=== PATIENT | female | born 1945 | race Hispanic/Latino ===

== ENCOUNTER 2021-02-17 05:54 | Observation (INO) | payer MEDICARE ==
[2021-02-12 10:41] LABS: BASOPHILS # (AUTO) 0.1 (0.0-0.1); BASOPHILS % 0.6 % (0.0-1.0); EOSINOPHILS # (AUTO) 0.2 (0.0-0.4); EOSINOPHILS % 1.4 % (0.0-6.0); HEMATOCRIT 37.1 % (34.2-44.1); HEMOGLOBIN 11.7 g/dL (12.0-16.0); LYMPHOCYTES # (AUTO) 2.6 (1.0-3.2); LYMPHOCYTES % 23.4 % (18.0-39.1); MEAN CORPUSCULAR HEMOGLOBIN 25.3 pg (28-32); MEAN CORPUSCULAR HGB CONC 31.5 g/dL (31-35); MEAN CORPUSCULAR VOLUME 80.1 fL (81-99); NEUTROPHILS # (AUTO) 7.1 (2.1-6.9); NEUTROPHILS % 65.2 % (38.7-80.0); PLATELET COUNT 389 x10e3/uL (140-360); RED BLOOD COUNT 4.63 x10e6/uL (3.6-5.1); RED CELL DISTRIBUTION WIDTH 16.2 % (11.7-14.4)
[2021-02-12 10:58] LABS: ANION GAP 13.8 mmol/L (8-16); BLOOD UREA NITROGEN 12 mg/dL (7-26); BUN/CREATININE RATIO 18 (6-25); CARBON DIOXIDE 25 mmol/L (22-29); CHLORIDE 107 mmol/L (98-107); CREATININE, SERUM 0.68 mg/dL (0.57-1.11); EST GLOMERULAR FILTRATION RATE > 60 ML/MIN (60-); GLUCOSE 115 mg/dL (74-118); POTASSIUM 4.8 mmol/L (3.5-5.1); SODIUM 141 mmol/L (136-145)
[~2021-02-17 05:54] MED LIST: AMLODIPINE BESYL5 MG PO; ASPIRIN81 MG PO; CARVEDILOL12.5 MG PO; CLONAZEPAM1 MG PO; CYCLOBENZAPRINE10 MG PO; EPINASTINE HCL5 ML; ETODOLAC200 MG PO; GABAPENTIN300 MG PO; LEVOCETIRIZINE D5 MG PO; LIPITOR10 MG PO; MECLIZINE HCL12.5 MG PO; MELOXICAM7.5 MG PO; METHOTREXATE2.5 MG PO; MULTI-VITAMIN1 EACH PO; MUPIROCIN22 GM TOP; NYSTATIN1 EAC1 TOP; PREDNISONE10 MG PO; PROCTOZONE BLADIN; RANITIDINE HCL75 MG PO; TERCONAZOLE; ZOLOFT50 MG PO
[2021-02-17] MEDS ORDERED: ACETAMINOPHEN 1000 MG/100 ML IV PRN (13:30)
[2021-02-17] MEDS ORDERED: HYDROMORPHONE 1MG/1ML INJ IV PRN (13:30)
[2021-02-17] MEDS ORDERED: HYDROCODONE/APAP 7.5MG-325MG 1 EA TAB PO PRN (13:30)
[2021-02-17] MEDS ORDERED: ONDANSETRON HCL INJ 2MG/ML 2ML 2 MG/ML VIAL IV PRN (13:30)
[2021-02-17] MEDS ORDERED: FENTANYL CITRATE/PF 100MCG/2 ML INJ ONE (13:50)
[2021-02-17] MEDS ORDERED: MIDAZOLAM HCL 2 MG/2 ML VIAL ONE (13:50)
[2021-02-17] MEDS ORDERED: SEVOFLURANE INHAL SOLN 250 ML PEN BTL ONE (14:04)
[2021-02-17] MEDS ORDERED: PROPOFOL IV EMULSION 10 MG/ML 20 ML VIAL ONE (14:04)
[2021-02-17] MEDS ORDERED: POVIDONE IODINE 0.05% 0.05 % ML PO ONE (14:04)
[2021-02-17] MEDS ORDERED: HYDROCORTISONE SOD SUCCINATE 100 MG VIAL ONE (14:04)
[2021-02-17] MEDS ORDERED: ONDANSETRON HCL INJ 2MG/ML 2ML 2 MG/ML VIAL ONE (14:04)
[2021-02-17] MEDS ORDERED: KETOROLAC TROMETHAMINE 30 MG/ML VIAL ONE (14:04)
[2021-02-17] MEDS ORDERED: ROCURONIUM BROMIDE 10 MG/ML 5ML VIAL IV ONE (14:04)
[2021-02-17] MEDS ORDERED: LIDOCAINE HCL 2% LOCAL INJ 5 ML SDV VIAL INJ ONE (14:04)
[2021-02-17] MEDS ORDERED: HYDROMORPHONE 2MG/ML 2 MG/ML ML ONE (14:48)
[2021-02-17] MEDS: CARVEDILOL 12.5 MG TAB PO SCH (18:00)
[2021-02-17 19:00] VITALS: BP 143/99
[2021-02-17 19:52] VITALS: BP 138/72
[2021-02-17 20:00] VITALS: BP 138/72
[2021-02-17] MEDS: SODIUM CHLORIDE 0.9% 1000ML 1,000 ML IV SCH (20:34)
[2021-02-17] MEDS: GABAPENTIN 300 MG CAP PO SCH (21:00)
[2021-02-17 21:56] VITALS: BP 138/72
[2021-02-18] VITALS: BP 165/73
[2021-02-18] MEDS: SODIUM CHLORIDE 0.9% 1000ML 1,000 ML IV SCH ×2 (03:45→13:46)
[2021-02-18 04:00] VITALS: BP 134/69
[2021-02-18 05:26] LABS: BASOPHILS % 0.3 % (0.0-1.0); EOSINOPHILS % 0.1 % (0.0-6.0); HEMATOCRIT 34.5 % (34.2-44.1); HEMOGLOBIN 10.6 g/dL (12.0-16.0); LYMPHOCYTES # (AUTO) 2.1 (1.0-3.2); LYMPHOCYTES % 14.8 % (18.0-39.1); MEAN CORPUSCULAR HEMOGLOBIN 24.7 pg (28-32); MEAN CORPUSCULAR HGB CONC 30.7 g/dL (31-35); MEAN CORPUSCULAR VOLUME 80.2 fL (81-99); MONOCYTES # (AUTO) 1.6 (0.2-0.8); MONOCYTES % 10.9 % (4.4-11.3); NEUTROPHILS # (AUTO) 10.5 (2.1-6.9); NEUTROPHILS % 73.3 % (38.7-80.0); PLATELET COUNT 470 x10e3/uL (140-360)
[2021-02-18 06:14] LABS: ANION GAP 13.7 mmol/L (8-16); BLOOD UREA NITROGEN 17 mg/dL (7-26); BUN/CREATININE RATIO 27 (6-25); CALCIUM 8.6 mg/dL (8.4-10.2); CARBON DIOXIDE 25 mmol/L (22-29); CHLORIDE 106 mmol/L (98-107); CREATININE, SERUM 0.62 mg/dL (0.57-1.11); EST GLOMERULAR FILTRATION RATE > 60 ML/MIN (60-); GLUCOSE 104 mg/dL (74-118); POTASSIUM 3.7 mmol/L (3.5-5.1); SODIUM 141 mmol/L (136-145)
[2021-02-18 07:39] VITALS: BP 127/75
[2021-02-18] MEDS ORDERED: PREDNISONE 10 MG TAB PO SCH (09:00)
[2021-02-18] MEDS ORDERED: MECLIZINE HCL 12.5 MG TAB PO SCH (09:00)
[2021-02-18] MEDS ORDERED: SERTRALINE HCL 50 MG TAB PO SCH (09:00)
[2021-02-18] MEDS ORDERED: LORATADINE 10 MG TAB PO SCH (09:00)
[2021-02-18] MEDS ORDERED: MELOXICAM 7.5 MG TAB PO SCH (09:00)
[2021-02-18] MEDS ORDERED: AMLODIPINE BESYLATE 10 MG TAB PO SCH (09:00)
[2021-02-18] MEDS: CARVEDILOL 12.5 MG TAB PO SCH ×2 (09:42→16:43)
[2021-02-18] MEDS: GABAPENTIN 300 MG CAP PO SCH ×2 (09:42→15:00)
[2021-02-18 09:44] VITALS: BP 127/75
[2021-02-18 11:32] VITALS: BP 140/80
[2021-02-18 16:07] VITALS: BP 109/68
== END 2021-02-18 19:32 | disposition home or self-care (01) ==
LOC: OR 05:54 → PACU V 14:12 → MED/SURG 18:40
PROVIDERS: ADMIT Surgery; ATTEND Surgery
DX: C50.912 Malignant neoplasm of unspecified site of left female breast (principal); Z20.822 Contact with and (suspected) exposure to COVID-19; I10 Essential (primary) hypertension; M06.9 Rheumatoid arthritis, unspecified
CPT/HCPCS: 19305; 36415 ×2; 71046; 78195; 80048 ×2; 85025 ×2; 88304; 88309; 93005; A9541; G0378 ×2; J1170; J1720; J1885; J2001; J2405; J2704; J7030 ×2; J7512; J8597; U0002; 88305; 88342; J2250; J3010

== ENCOUNTER → 2021-08-17 | Outpatient (CLI) | payer MEDICARE, OTHER | LOC: US 08:37 | PROVIDERS: ATTEND Urology | DX: R10.31 Right lower quadrant pain (principal) | CPT/HCPCS: 74018; 76770 ==

== ENCOUNTER → 2023-01-20 | Outpatient (CLI) | payer MEDICARE, OTHER | LOC: RAD 11:32 | PROVIDERS: ATTEND Internal Medicine | DX: M06.89 Other specified rheumatoid arthritis, multiple sites (principal) | CPT/HCPCS: 72050 ==